=== PATIENT | female | born 1955 | race Caucasian/White ===

== ENCOUNTER 2020-12-19 15:58 | Inpatient (IN) | payer OTHER ==
[~2020-12-19] VITALS: Ht 157.5 cm; Wt 78.9 kg
[2020-12-20] MEDS ORDERED: DOCUSATE SODIU100 MG PO (00:50)
[2020-12-20] MEDS ORDERED: GABAPENTIN600 M1 PO (00:51)
[2020-12-20] MEDS ORDERED: FAMOTIDINE 40 M40 M1 PO (00:51)
[2020-12-20] MEDS ORDERED: CLARITIN10 M3 PO (00:52)
[2020-12-20] MEDS ORDERED: NYSTATIN1 EA10 TOP (00:53)
[2020-12-20] MEDS ORDERED: MIRTAZAPINE45 MG PO (00:53)
[2020-12-20] MEDS ORDERED: PROTONIX40 M2 PO (00:54)
[2020-12-20] MEDS ORDERED: SERTRALINE HCL100 MG PO (00:54)
[2020-12-20] MEDS ORDERED: DESYREL150 MG PO (00:56)
[2020-12-20] MEDS ORDERED: WARFARIN SODIUM1 MG PO (00:58)
--- NOTE | 2020-12-20 06:46 | NUR ---
Patient arrived via wheel chair at 0555 am. Patient calm and cooperative, attentive to conversation. Alert and oriented x4. Ambulates without assistance, steady gait. Here for SI and major depressive disorder. Vital signs are 133/84 pulse 65, wt 175.1, 18 rr, 96%sp02, 98.9 temp. Patient is in room 522A. We will continue to monitor per hospital policy.
[2020-12-20 08:53] VITALS: BP 120/76
[2020-12-20 09:15] LABS: HEMOGLOBIN 13.7 gm/dL (12.0-15.0); MCH 28.2 pg (26.0-34.0); MCHC 31.3 g/dL (28.0-37.0); MCV 90.1 fL (80.0-100.0); RBC 4.88 mil/uL (4.20-5.00); WBC 4.6 thou/uL (4.0-11.0)
[2020-12-20 09:40] LABS: INR 2.3; PROTIME 23.5 Seconds (9.3-11.4)
[2020-12-20 09:42] LABS: CREATININE 1.7 mg/dL (0.6-1.0); POTASSIUM 4.7 mmol/L (3.5-5.1)
[2020-12-20] MEDS ORDERED: TRAZODONE HCL100 MG PO (12:42)
--- NOTE | 2020-12-20 18:19 | NUR ---
DID NAP FOR APPROX 1.5 HOURS THIS AM FROM APPROX 1030 TO LUNCH ARRIVAL AT NOON-WAS COOPERATIVE WITH COMPLETING ADMISSION WITH THIS NURSE. BLUNTED AFFECT-DENIES SI/SH CURRENTLY. DID STATE SEVERAL TIMES DURING ADMIT INTERVIEW "I DON'T KNOW IF THIS IS THE RIGHT PLACE FOR ME" DOES ACKNOWLEDGE FEELING OVERWHELMED WITH ACTING OUT BEHAVIORS AND NOISES OF PEERS ASKING "IS THERE ANYONE MORE LIKE ME HERE THAT I CAN TALK TO" DOES APPEAR MORE RELAXED IN [place] IN PM-DENIES COMPLAINTS-DENIES PAIN/DISCOMFORT.GAIT STEADY
[2020-12-20 20:00] VITALS: BP 144/72
[2020-12-20 20:14] VITALS: BP 144/72
[2020-12-21 07:13] LABS: INR 2.2; PROTIME 22.7 Seconds (9.3-11.4)
--- NOTE | 2020-12-21 07:53 | NUR ---
PROGRESS PT ALERT AND ORIENTED TO 1 TO 3 SLEPT ALL SHIFT, INDEPENDENT WITH ADL'S, CONTINENT. SLEPT ALL SHIFT DENIES PAIN VSS.
--- NOTE | 2020-12-21 11:00 | NUR ---
New admit to [facility] for SI and depression. Tolerating meals eating 75-100%. Noted glucose of 176 on BMP at admit, no hx diabetes and not on diabetic medications. Discussed in team meeting and Dr Castillo to order A1C level to check. No wt loss. Low nutrition risk
--- NOTE | 2020-12-21 15:42 | NUR ---
PATIENT ISOLATES SELF TO ROOM, COMES OUT FOR MEALS WITH LOTS OF ENCOURAGEMENT FROM STAFF. SHE GOES RIGHT BACK TO BED AFTER MEALS. PATIENT DECLINES GROUP THERPY. SHE TOOK ALL MEDICATION WHOLE WITHOUT DIFFICULTY. PATIENT DENIES SUICIDAL/HOMICIDAL IDEATION, SHE RATES BOTH DEPRESSION/ANXIETY 06/20 "I DON'T THINK THIS IS WHERE I BELONG. I AM READY TO LEAVE HERE". MOOD IS DEPRESSED, AFFECT IS FLAT/BLUNTED, NO SIGN OF ACUTE DISTRESS NOTED AT THIS TIME, WILL CONTINUE TO ENCOURAGE GROUP THERAPY, AND MONITOR FOR SAFETY.
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
[2020-12-21 19:42] VITALS: BP 146/91
--- NOTE | 2020-12-22 05:22 | NUR ---
Assumed care for pt at 1900. Pt sitting in dining room at table by herself. Pt presented with flat and depressed mood. Pt affect brightened after talking to her son on phone. Stated it always makes her feel better when she talks to him. Pt talks about wanting to go home to be with her son and her cat, Virgiech. Pt rates depression a /10 and anxiety 7/10. Pt reported ROJO and requested PRN Tylenol which was administered at 2003. Upon follow up pt sleeping; PRN appeared to be affective. Pt reoported that her day was bad. States she thinks (or thought) the social services assistant was mad at her because she did not want to go to group, then when she did go, was upset because she was not comfortable taking in that setting. States she would much rather talk to someone face to face. Stated she talked to SW in private after group and thought it went okay. Pt denies SI. Pt is on 12 minute checks for safety. Will continue to monitor for any changes in mood/behavior and safety.
[2020-12-22 09:45] VITALS: BP 166/101
--- NOTE | 2020-12-22 10:53 | NUR ---
Alert and orientated X 4. Denies SI/HI this AM. Up ambulating in unit without s/o distress. States her goal is to attend all groups today. Also requesting shower which she did independently. Breath sounds clear t/o, bilaterally equal. Reg HR auscultated. Color pink with brisk capillary refill and palpable peripheral pulses. Independent with voiding. Reports 2 formed stools this AM, declined colace with am meds. Active bowel sounds over soft, rounded abdomen.
[2020-12-22 11:15] VITALS: BP 122/83
--- NOTE | 2020-12-22 13:56 | NUR ---
This nurse was on the unit and observed patient yelling, agitated, angry, declining to attend group. Patient had expressed that her room was cold which a work order has been placed. Patient stated that she wanted her clothing out of the dryer before she would attend group. Nurse asked patient to attend group and her clothing would be checked on. Patient attempted to manipulate nurse into no going to group. Order obtained for room lockout for meals and groups.
[2020-12-22 19:31] VITALS: BP 153/98
[2020-12-23 06:37] LABS: INR 1.9; PROTIME 20.1 Seconds (9.3-11.4)
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
[2020-12-23 09:50] VITALS: BP 154/93
--- NOTE | 2020-12-23 12:25 | NUR ---
Followup: reconsulted. Pt has hx gastroplasty ~3 yrs ago. Reports initial starting wt at that time was 299 lb, dropped to low of 150 lb over 3 yrs but has regained to 175 lb. Tolerates diet, as long as receives softer foods. Pt not aware can order own meal preferences from alternative menu and states was happy to know this. Tolerating lunch well today. Takes mvi and vitamin D at home-discussed with RN to address with physician to start. A1C level is pending for glucose of 176 per BMP. Low nutrition risk.
--- NOTE | 2020-12-23 12:29 | NUR ---
Pt has hx bariatric surgery and takes MVI and vitamin D at home. recommend order to start these supplements. Please encourage pt to order own food choices from menu daily.
--- NOTE | 2020-12-23 12:40 | NUR ---
Assumed pt care at 0700. pt was alert and oriented x3, pt knew she was in the hospital, pt stated I know am not in research, but I don't know the name of this hospital. pt was calm and co-operative with care. pt denies SI/HI, pt denies pain. pt states she is in a better mood today. PT ambulates with a steady gait. pt took medication whole without difficulties. There are no sign of distress noted during assessment. pt goal was to attend groups and have a good attitude. so far pt have been achieving her goal. pt concern was about food. Stoneworker came to speak with pt. Will continue to monitor pt per Protocol.
[2020-12-23] MEDS ORDERED: ONE DAILY WOME1 EAC3 (16:11)
[2020-12-23] MEDS ORDERED: VITAMIN D-40010 MCG PO (16:17)
[2020-12-23 19:46] VITALS: BP 129/76
[2020-12-24 00:06] LABS: GLYCOHEMOGLOBIN (HGB A1C) 5.1 % (4.8-5.6)
--- NOTE | 2020-12-24 04:25 | NUR ---
Assumed pt's care this pm shift. Alert and oriented. Very pleasant and cooperative. Did voice having some anxiety and depression from being here. Pt took meds per emar. Declined docusate, voicing that she had loose bm x2 12/23/20. Pt was in the dayroom with other peers before retiring for the night. Pt slept well this shift. Strong and steady gait. Will continue to monitor.
[2020-12-24 06:42] LABS: INR 1.9; PROTIME 20.7 Seconds (9.3-11.4)
[2020-12-24 07:47] VITALS: BP 156/93
--- NOTE | 2020-12-24 11:09 | NUR ---
Alert and orientated x4. Calm, cooperative and compliant. Flat affect. Refused Colace d/t frequent stools. Up ambulating with regular, steady gait. Breath sounds clear. Reg HR auscultated. Color pink with brisk capillary refill and palpable peripheral pulses. Independent with voiding. Active bowel sounds over soft, rounded abdomen. Attended group this am and participated minimally.
[2020-12-24 18:23] VITALS: BP 132/89
--- NOTE | 2020-12-25 03:18 | NUR ---
ASSESSMENT: PT REMAIN ALERT AND ORIENT TIMES FOUR. PLEASANT, COOPERATIVE WITH POC. ABLE TO LET NEEDS BE KNOWN. VSS, AFEBRILE. DENIES PAIN, SOB AND N/V. WILL CONTINUE TO MONITOR.
[2020-12-25 06:24] LABS: HEMATOCRIT 35.1 % (37.0-47.0); HEMOGLOBIN 11.2 gm/dL (12.0-15.0); MCH 28.4 pg (26.0-34.0); MCHC 31.9 g/dL (28.0-37.0); RBC 3.95 mil/uL (4.20-5.00); RDW 14.3 % (10.5-14.5); WBC 4.7 thou/uL (4.0-11.0)
[2020-12-25 06:41] LABS: PROTIME 21.1 Seconds (9.3-11.4)
[2020-12-25 06:44] LABS: ALBUMIN 2.8 g/dL (3.4-5.0); CREATININE 1.4 mg/dL (0.6-1.0); POTASSIUM 4.3 mmol/L (3.5-5.1); TOTAL BILIRUBIN 0.2 mg/dL (0.2-1.0)
[2020-12-25 09:57] VITALS: BP 149/84
--- NOTE | 2020-12-25 10:31 | NUR ---
1030 RESUMMED CARE FROM OVERNIGHT SHIFT THIS AM, PATIENT IN DAY ROOM QUIET. PATIENT ATE BREAKFAST TOOK MEDICATION WITHOUT INCIDENCE, PATIENT DENIES SI/HI/AH/VH AT PRESENT. PATIENTS ABDOMEN SOFT BOWEL SOUNDS PRESENT LUNGS CLEAR. PATIENT TOOK SHOWER THIS AM CALM COOPERATIVE PATIENT DOES NOT INTERACT MUCH WITH OTHER PATIENTS. WILL CONTINUE TO MONITOR PATIENT FOR SAFETY AND BEHAVIORS.
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
[2020-12-25 19:57] VITALS: BP 148/96
--- NOTE | 2020-12-26 01:53 | NUR ---
Assumed care on 12/25/20 @ 1900, seated in the day room and ambulating thruout the mileu. Socializing with peers and watching TV. When offered meds, refused saying that she was offended that I brought her meds to her after giving meds to all the other patients. Dr. Castillo called and explained situation, received permission to not administer patient her meds. Retired at and slept well until room mate saw her returning from bathroom and was frightened, calling out.
[2020-12-26 05:59] LABS: INR 1.9; PROTIME 20.4 Seconds (9.3-11.4)
[2020-12-26] MEDS ORDERED: ABILIFY 2 MG2 M1 PO (09:13)
[2020-12-26 09:25] VITALS: BP 144/84
[2020-12-26 09:31] VITALS: BP 144/84
--- NOTE | 2020-12-26 10:44 | NUR ---
CHERRY contacted Pt's case therapist concerning discharge today. Sara informed that Pt has an appointment with her therapist on 01/06/21. Pt sees Dr. Fernandes for outpt psychiatry. CHERRY left a message with Dr. Rodrigues medical assistance to get a follow up appointment in the next 7 days. CHERRY has not recieved phone call back as of this note. Pt's next psychiatry appointment is in May.
[2020-12-26 12:19] VITALS: BP 144/84
--- NOTE | 2020-12-26 13:00 | NUR ---
1300 RESUMMED CARE FROM OVERNIGHT SHIFT THIS AM, PATIENT IN ROOM QUIET. PATIENT ATE BREAKFAST TOOM MEDICATION WITHOUT INCIDENCE, PATIENT ALERT ORIENTED TIMES 4. PATIENT DENIES SI/HI/AH/VH AT PRESENT PATIENTS ABDOMEN SOFT BOWEL SOUNDS PRESENT. PATIENTS LUNGS CLEAR PATIENT HAD A COVID TEST DONE TODAY; PATIENT IS DISCHARGING TO HOME TODAY I CALLED HER ABILIFY SCRIPT TO [facility] ON [address] [place], [place]. PATIENT HAS BELONGINGS AND AFTERCARE INSTRUCTIONS.
--- NOTE | 2020-12-27 05:31 | NUR ---
PT D/C'D TO HOME ON 12/26/20. PATIENT'S PENDING COVID PCR WAS POSITIVE. PATIENT AND SON NOTIFIED BY PHONE AT 2020 12/26/20 OF POSITIVE RESULT. PATIENT ASYMPTOMATIC AT THIS TIME. HAD COVID PRIOR IN OCTOBER AND ONE NEGATIVE COVID THE TIME BEFORE THIS. PT NOTIFIED TO TREAT THE SYMPTOMS AT HOME AND TO QUARENTINE FOR 10 DAYS. PATIENT NOTIFIED TO COME TO CALL HER DR IF SOB BEGINS OR HIGH FEVER AND /OR GO TO ER. PATIENT THANKED THIS NURSE FOR CALLING AND LETTING HER KNOW AND ADVISING HER ON TX PLAN.
== END 2020-12-26 13:33 | disposition home or self-care (01) | DRG 885 ==
LOC: SBH
PROVIDERS: Nurse Practitioner Family; ADMIT Psychiatry & Neurology Psychiatry; ATTEND Psychiatry & Neurology Psychiatry
DX: F33.2 Major depressive disorder, recurrent severe without psychotic features (principal); R45.851 Suicidal ideations; F41.9 Anxiety disorder, unspecified; E78.5 Hyperlipidemia, unspecified; K21.9 Gastro-esophageal reflux disease without esophagitis; E03.9 Hypothyroidism, unspecified; I10 Essential (primary) hypertension; M10.9 Gout, unspecified; M81.0 Age-related osteoporosis without current pathological fracture; G25.81 Restless legs syndrome; J45.909 Unspecified asthma, uncomplicated; Z96.652 Presence of left artificial knee joint; Z20.822 Contact with and (suspected) exposure to COVID-19; Z86.711 Personal history of pulmonary embolism; Z86.718 Personal history of other venous thrombosis and embolism; Z90.49 Acquired absence of other specified parts of digestive tract; Z90.710 Acquired absence of both cervix and uterus; Z79.01 Long term (current) use of anticoagulants; Z79.899 Other long term (current) drug therapy; Z87.891 Personal history of nicotine dependence; Z86.16 Personal history of COVID-19
CPT/HCPCS: 10880

== ENCOUNTER 2020-12-19 21:49 | Emergency (ER) | payer OTHER ==
[~2020-12-19] VITALS: Ht 157.5 cm; Wt 79.4 kg
[2020-12-20] MEDS ORDERED: DOCUSATE SODIU100 MG PO (00:50)
[2020-12-20] MEDS ORDERED: GABAPENTIN600 M1 PO (00:51)
[2020-12-20] MEDS ORDERED: FAMOTIDINE 40 M40 M1 PO (00:51)
[2020-12-20] MEDS ORDERED: CLARITIN10 M3 PO (00:52)
[2020-12-20] MEDS ORDERED: NYSTATIN1 EA10 TOP (00:53)
[2020-12-20] MEDS ORDERED: MIRTAZAPINE45 MG PO (00:53)
[2020-12-20] MEDS ORDERED: SERTRALINE HCL100 MG PO (00:54)
[2020-12-20] MEDS ORDERED: PROTONIX40 M2 PO (00:54)
[2020-12-20] MEDS ORDERED: DESYREL150 MG PO (00:56)
[2020-12-20] MEDS ORDERED: WARFARIN SODIUM1 MG PO (00:58)
[2020-12-20 05:50] VITALS: BP 138/74
[2020-12-20] MEDS ORDERED: TRAZODONE HCL100 MG PO (12:42)
== END 2020-12-20 06:09 ==
LOC: ER 21:49
DX: R45.851 Suicidal ideations (principal); Z90.710 Acquired absence of both cervix and uterus; Z79.899 Other long term (current) drug therapy; Z20.828 Contact with and (suspected) exposure to other viral communicable diseases